=== PATIENT | female | born 1995 | race Two or more races ===

== ENCOUNTER → 2016-11-16 | Emergency (ER) | payer SELFPAY ==
[~2016-11-16] VITALS: Ht 175.3 cm; Wt 65.8 kg
[2016-11-16 17:00] VITALS: BP 114/74
--- NOTE | 2016-11-16 17:16 | NUR ---
CLEMENTS DBUT NOT IN WAITING ROOM
== END | disposition home or self-care (01) ==
LOC: ER 16:46
DX: S52.502A Unspecified fracture of the lower end of left radius, initial encounter for closed fracture (principal); F32.9 Major depressive disorder, single episode, unspecified; Z98.890 Other specified postprocedural states; Z88.6 Allergy status to analgesic agent; X58.XXXA Exposure to other specified factors, initial encounter; Y93.67 Activity, basketball; Y92.89 Other specified places as the place of occurrence of the external cause; Y99.9 Unspecified external cause status
CPT/HCPCS: 73090-TC; 73110; A4606; Z7610